=== PATIENT | male | born 1955 | race Caucasian/White ===

== ENCOUNTER 2016-06-07 10:25 | Outpatient (CLI) | payer BC ==
[2015-09-17 21:16] VITALS: BP 132/74
--- NOTE | 2016-06-07 15:32 | Diagnostic Imaging Report ---
HERMES BRUNSON [facility] [address] [facility].[address] [address] Report Submission Date: Jun 07, 2016 12:10:51 PM CDT Patient Study Name: CIRILO RAHMAN SARAVANAN Date: Jun 07, 2016 10:57:47 AM CDT Modality Type: CR Gender: M Description: SPINE : 57 Institution: [facility] Physician: HERMES BRUNSON Thoracic spine - four views Clinical history: Left-sided back pain. Findings: Examination of the thoracic spine in AP, lateral, lateral thoracolumbar and lateral swimmer's views demonstrates degenerative changes with anterior and lateral osteophytes throughout the thoracic vertebrae. The pedicles are intact and the paravertebral soft tissues are within normal limits. There is no evident fracture. Spondylitic change are incidentally noted in the lumbar vertebrae and prior fusion of the cervical spine at C6-7. Impression: 1. Spondylosis. 2. No fracture. Electronically signed on Jun 07, 2016 12:10:51 PM CDT by: Paulo FENTON
== END 2016-06-07 10:26 ==
LOC: RAD 10:25
PROVIDERS: ATTEND Physician Assistant
DX: M54.9 Dorsalgia, unspecified (principal)
CPT/HCPCS: 72072

== ENCOUNTER 2016-09-11 22:16 | Emergency (ER) | payer BC ==
[2016-09-11] MEDS ORDERED: fentaNYL CITRATE/PF 100 MCG/ 2ML AMP IVP ONE (23:13)
[2016-09-11] MEDS ORDERED: LORazepam 2 MG/ML VIAL IVP ONE (23:13)
--- NOTE | 2016-09-11 23:20 | ED Physician Documentation ---
Fall - HISTORIAN Historian: patient - HPI Stated Complaint: hand pain after fall Chief Complaint: Upper Extremity Injury Additional Information: FELL IN SHOWER APPROX 2200 HRS W/PAIN DEFORMITY LT DISTAL PHALYNX 4TH FINGER. XRAY SHOWS DORSAL DISPLACEMENT DISTAL PHALYNX Where: home Context: slipped (ION SHOWER) r: moderate Associated Symptoms:: no loss of consciousness Location of Pain/Injury: denies: head Injury to Right Extremity: denies: none Further Comments: yes (ATE BURGER AND FRIES APPROX 1800HRS) - ROS CONST: no problems NEURO: denies: dizziness MS/SKIN/LYMPH: denies: weakness, numbness, neck pain, back pain EYES/ENT: denies: problems with vision CVS/RESP: denies: chest pain, shortness of breath - PAST HX Past History: other (HTN) Allergies/Adverse Reactions: Allergies Allergy/AdvReac Type Severity Reaction Status Date / Time No Known Drug Allergies Allergy Verified 09/11/16 22:29 - SOCIAL HX Smoking History: non-smoker Alcohol Use: other (APPROX 2 BEER PER DAY) Drug Use: none - FAMILY HX Family History: no significant history - VITAL SIGNS Vital Signs: Vital Signs Temp Pulse Resp BP Pulse Ox 76 16 162/67 98 09/11/16 22:31 09/11/16 22:31 09/11/16 22:31 09/11/16 22:31 - REVIEWED ASSESSMENTS Nursing Assessment Reviewed: Yes Vitals Reviewed: Yes Procedures Joint Reduction Site: knee (R) (PHALYNX LT 4TH FINGER), other Conscious Sedation: Yes Pre-Procedure NV Exam: Yes Post Joint Reduction Film: no fracture seen ED Results Lab/Radiology - Radiology Radiology Impressions: POOST REDUCTIONH SATIS SPLINT APPLIED - Orders Orders: ED Orders Category Date Time Status Place IV Lock 1T Care 09/11/16 23:12 Ordered HAND XRAY [HAND 3 VIEWS OR MORE] [RAD] Stat Exams 09/11/16 Ordered LORazepam [Ativan] Med 09/11/16 23:13 Once 1 mg IVP NOW ONE fentaNYL CITRATE/PF [Duragesic] Med 09/11/16 23:13 Once 50 mcg IVP NOW ONE Fall Physical Exam - Physical Exam General Appearance: mild distress Head: non-tender Neck: non-tender Eye: EOMI Resp/CVS: chest non-tender, no ecchymosis, breath sounds nml, no resp. distress , heart sounds nml Abdomen: soft, non-tender Neuro: oriented x3, CN's nml as tested, sensation nml, motor nml, mood/affect nml Skin: color nml, no rash. No: cyanosis, diaphoresis Back: normal inspection Joint: No: joints nml - Kandace Coma Score Eyes Open: Spontaneous Speech: Oriented Motor: Obeys Commands Discharge Clincal Impression: FALL W/DISLOCATION LT 4TH DISTAL PHALYNX Referrals: Jennifer Dixon MD [Primary Care Provider] - 2 Days Comments: SOST REDUCTION FILMS SHOW ADEQUATE REDUCTION SPLINT APPLIED-F/U W/PCP IN 5/6 DAYS Condition: Good Disposition: 01 HOME, SELF-CARE Decision to Admit: NO Decision Time: 00:40
--- NOTE | 2016-09-12 00:55 | Diagnostic Imaging Report ---
NGUYEN QUEVEDO [facility] [address] [facility] [address] [address] Report Submission Date: Sep 11, 2016 10:47:33 PM CDT Patient Study Name: CIRILO RAHMAN SARAVANAN Date: Sep 11, 2016 10:30:54 PM CDT Modality Type: CR Gender: M Description: UPPER EXTREMITY : 57 [facility] Physician: NGUYEN QUEVEDO Left hand, 3 views. History: FALL Findings: There is posterior dislocation of the 4th distal phalanx at the distal interphalangeal joint space. There is no evidence of acute fracture. There is no soft tissue abnormality. Impression: 1. 4th distal phalanx posterior dislocation. No evidence of fracture. Electronically signed on Sep 11, 2016 10:47:33 PM CDT by: Aguilar FENTON
--- NOTE | 2016-09-12 00:56 | Diagnostic Imaging Report ---
NGUYEN QUEVEDO [facility] [address] [facility] [address] [address] Report Submission Date: Sep 12, 2016 12:43:41 AM CDT Patient Study Name: CIRILO RAHMAN SARAVANAN Date: Sep 12, 2016 12:19:13 AM CDT Modality Type: CR Gender: M Description: UPPER EXTREMITY : 57 Institution: [facility] Physician: NGUYEN QUEVEDO Left 4th digit Clinical history: Pain Technique AP lateral oblique Findings: The distal interphalangeal joint dislocation has been reduced. No fractures is seen. Top Impression: Reduced 4th digit dip joint dislocation Electronically signed on Sep 12, 2016 12:43:41 AM CDT by: Sadiq FENTON
[2016-09-12 01:35] VITALS: BP 170/78
== END 2016-09-12 01:10 | disposition home or self-care (01) ==
LOC: ED 22:16
DX: S63.255A Unspecified dislocation of left ring finger, initial encounter (principal); W19.XXXA Unspecified fall, initial encounter; Y93.9 Activity, unspecified; Y99.9 Unspecified external cause status
CPT/HCPCS: 73130; 73140; J2060; J3010; 26700; 96374; 96375; 99283; S1016

== ENCOUNTER 2017-04-29 08:56 | Outpatient (CLI) | payer BC ==
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
== END 2017-04-29 08:59 ==
LOC: OUT 08:56
PROVIDERS: ATTEND Anesthesiology Pain Medicine
DX: M54.14 Radiculopathy, thoracic region (principal); M79.89 Other specified soft tissue disorders; Z04.2 Encounter for examination and observation following work accident
CPT/HCPCS: 99213; 99214

== ENCOUNTER 2017-05-27 09:32 | Outpatient (CLI) | payer BC ==
--- NOTE | 2017-05-29 08:50 | PAIN CLINIC PROGRESS NOTES ---
REASON FOR VISIT: Mr. Leach follows up today with [id number] thoracic pain symptoms and pain radiating around the thoracic spine. He did obtain an MRI study. We do have images as well of the lumbar spine. He had a grade 1 retro-anterolisthesis of L5-S1 resulting in bilateral neuroforaminal stenosis and otherwise a disc protrusion at L1-L2, posterior osteophytes at L2-L3, and spondylosis in the thoracic and lumbar spine. I reviewed his thoracic images taking in consideration the area of his chief complaint and he has notable posterior osteophytes at T7-T8, T8-T9, and T9-T10. There is a radiolucent segment, likely a hemangioma, at the body of T11. I have told him that this is very likely nerve root irritation from lifting and twisting at his job in conjunction with some narrowing in the thoracic spine. He is much improved following the prednisone dose pack; and at this point, he would like to avoid an injection. ASSESSMENT: 1. Thoracic radiculitis. 2. Thoracic disc protrusions documented on MRI. PLAN: I am going to give him a second prednisone taper and I will schedule him for a thoracic epidural steroid injection next month. If he is all better, I have told him that we would not need to see him. He seems pleased with this treatment plan, which is in accordance to his wishes, and we will plan on following him up next month. Thank you a lot for allowing me to take part in the care of this nice gentleman. I appreciate the opportunity to take part in the care of your patients. cc: Dr. Jennifer FENTON
== END 2017-05-27 09:33 ==
LOC: OUT 09:32
PROVIDERS: ATTEND Anesthesiology Pain Medicine
DX: M54.14 Radiculopathy, thoracic region (principal); M51.9 Unspecified thoracic, thoracolumbar and lumbosacral intervertebral disc disorder
CPT/HCPCS: 99213; 99214

== ENCOUNTER 2017-07-29 11:04 | Outpatient (CLI) | payer BC ==
[2017-07-29] MEDS ORDERED: TRIAMCINOLONE ACETONID 40MG/ML VIAL ONE (11:05)
[2017-07-29] MEDS ORDERED: WATER FOR INJECTION,STERILE 100 ML VIAL IJ ONE (11:05)
[2017-07-29] MEDS ORDERED: Lidocaine 1% 5ml(IM or SUTURE)(PAIN CLINIC) ONE (11:05)
--- NOTE | 2017-07-31 16:21 | THORACIC ESI FLUORO ---
SUBJECTIVE: Mr. Leach presents today with continued right-sided thoracic radicular pain. MRI with multilevel degenerative disk disease, multilevel osteophytes. X- ray consisted with ankylosing spondylitis. 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 Plan today for a palliative epidural injection, as he has had 2 rounds of prednisone and still has symptoms. OPERATIVE PROCEDURE: Right T9-T10 epidural steroid injection with fluoroscopic guidance. DESCRIPTION OF PROCEDURE: The risks and benefits were discussed with the patient including the risk of infection, bleeding, nerve injury, and headache, as well as the risks of steroid exposure causing hyperglycemia, hypertension, osteoporosis, or increased infectious risks. The patient understood these risks and agreed to proceed. Consent was obtained prior to the procedure. The patient was placed in the prone position on the fluoroscopy table with a pillow underneath the abdomen to afford anterior flexion of the thoracic spine. The low back was cleaned and a sterile drape was applied. An epidural needle was advanced with normal saline loss of resistance technique and direct fluoroscopic guidance with a right paramedian approach at the T9-T10 level. On obtaining loss of resistance to normal saline, it was verified that there was no aspiration of CSF or blood. Furthermore, the needle tip location was verified with lateral and AP fluoroscopic views. Omnipaque 240 myelogram dye were injected through the epidural needle. The distribution of the dye was noted to be within the desired distribution within the thoracic epidural space. The medication was injected into the epidural space. The stylet was replaced in the needle and the needle was removed from the back. The patient tolerated the procedure well. The back was cleaned and a bandage was applied over the injection site. The patient was monitored for 20 minutes following the procedure. during this time the vital signs remained stable and the patient experienced no adverse sequelae. The patient was discharged in good condition. ASSESSMENT: Thoracic radiculitis. PLAN: Right T9-T10 epidural steroid injection with fluoroscopic guidance. FOLLOWUP: Return to clinic if problems develop or worsen. cc: Dr. Jennifer FENTON
== END 2017-07-29 11:06 ==
LOC: OUT 11:04
PROVIDERS: ATTEND Anesthesiology Pain Medicine
DX: M54.14 Radiculopathy, thoracic region (principal)
CPT/HCPCS: 62321; 99214; J3301

== ENCOUNTER 2017-08-26 07:54 | Outpatient (CLI) | payer BC ==
--- NOTE | 2017-08-27 09:31 | PAIN CLINIC PROGRESS NOTES ---
REASON FOR VISIT: I had the opportunity of following up with Mr. Leach today following a T9-T10 epidural steroid injection for chronic radiculitis. Mr. Leach received a T9- T10 epidural injection for chronic radicular pain. His symptoms at this point are much improved. He says he does work at [employer]. He has to do some work overhead. He does some reaching. He has been trying to do activity pacing. We discussed the underlying problem and we discussed home exercise and physical therapy. ASSESSMENT: Thoracic degenerative disc disease and radiculitis, now improved. PLAN: At this point, he is much improved. We will have him begin a home exercise program and follow him up on a p.r.n. basis. He is pleased with the response. cc: Dr. Jennifer FENTON
== END 2017-08-26 07:59 ==
LOC: OUT 07:54
PROVIDERS: ATTEND Anesthesiology Pain Medicine
DX: M51.14 Intervertebral disc disorders with radiculopathy, thoracic region (principal)
CPT/HCPCS: 99213

== ENCOUNTER 2017-10-21 10:48 | Outpatient (CLI) | payer BC ==
[2017-10-21 11:02] LABS: BASOPHILS % 0.4 (0.0-1.5); EOSINOPHILS % 2.6 % (0.0-6.8); MEAN CORPUSCULAR HEMOGLOBIN 30.6 pg (28.0-34.0); MEAN CORPUSCULAR VOLUME 92.4 fl (80.0-100.0); MONOCYTES % 3.9 % (0.0-11.0); NEUTROPHILS # 7.1 # k/uL (1.4-7.7)
--- NOTE | 2017-10-21 11:48 | Diagnostic Imaging Report ---
KAITLIN JACOBS [facility] [address] [facility].[address] [address] Report Submission Date: Oct 21, 2017 11:37:41 AM CDT Patient Study Name: SERGIO RAHMAN Date: Oct 21, 2017 10:54:00 AM CDT Modality Type: DX Gender: M Description: UPPER EXTREMITY : 57 Institution: [facility] Physician: KAITLIN JACOBS Examination: Plain film left wrist History: Wrist discomfort Comparison exams: None available Findings: 3 views of the left wrist demonstrate normal cortical margins. No fracture. No dislocation. No soft tissue abnormality. Impression: No acute osseous abnormality Electronically signed on Oct 21, 2017 11:37:41 AM CDT by: Freddie FENTON
== END 2017-10-21 10:50 ==
LOC: LAB 10:48
PROVIDERS: ATTEND Family Medicine
DX: M25.532 Pain in left wrist (principal)
CPT/HCPCS: 36415; 73110; 84550; 85025

== ENCOUNTER 2018-03-25 15:28 | Outpatient (CLI) | payer BC ==
[2018-03-25 16:06] LABS: eGFR (Non-African) > 60
[2018-03-25 16:09] LABS: MEAN CORPUSCULAR HEMOGLOBIN 30.6 pg (28.0-34.0)
[2018-03-25 16:11] LABS: BASOPHILS % 1 % (0-2); EOSINOPHILS % 1 % (0-7); MONOCYTES % 3 % (0-11); SEGMENTED NEUTROPHILS % 57 % (39-79)
--- NOTE | 2018-03-25 17:21 | Diagnostic Imaging Report ---
ZOE JUSTICE [facility] [address] [address] [address] Report Submission Date: Mar 25, 2018 4:48:16 PM SLIDER ASSEMBLER Patient Study Name: SERGIO RAHMAN Date: Mar 25, 2018 4:09:05 PM SLIDER ASSEMBLER Modality Type: DX Gender: M Description: CHEST 2VIEW : 57 Institution: [facility] Physician: ZOE JUSTICE Examination: PA and lateral chest. History: Evaluate lung smith. Comparison exam: None provided. Findings: PA and lateral views of the chest demonstrates a normal cardiac and mediastinal silhouette. No focal infiltrate. No blunting of the costophrenic margins. Osseous structures are appropriate for age. Impression: No acute pulmonary process. Electronically signed on Mar 25, 2018 4:48:16 PM SLIDER ASSEMBLER by: Freddie FENTON
== END 2018-03-25 15:30 ==
LOC: LAB 15:28
PROVIDERS: ATTEND Nurse Practitioner Family
DX: R06.02 Shortness of breath (principal); R53.83 Other fatigue; R42 Dizziness and giddiness
CPT/HCPCS: 36415; 71046; 80053; 85025

== ENCOUNTER 2018-03-30 13:13 | Outpatient (CLI) | payer BC ==
[2018-03-30 18:08] LABS: MEAN CORPUSCULAR HEMOGLOBIN 29.9 pg (28.0-34.0)
[2018-03-30 18:09] LABS: BASOPHILS % 0 % (0-2); EOSINOPHILS % 10 % (0-7); MONOCYTES % 5 % (0-11); SEGMENTED NEUTROPHILS % 56 % (39-79)
[2018-03-30 18:10] LABS: ANISOCYTOSIS 1+ (NEGATIVE); PLT EST. EST. AGREES W/PLT CT
== END 2018-03-30 13:15 ==
LOC: LAB 13:13
PROVIDERS: ATTEND Nurse Practitioner Family
DX: D72.829 Elevated white blood cell count, unspecified (principal)
CPT/HCPCS: 36415; 85025

== ENCOUNTER 2018-04-15 15:49 | Outpatient (CLI) | payer BC ==
[2018-04-15 16:09] LABS: BASOPHILS % 0.6 (0.0-1.5); EOSINOPHILS % 6.2 % (0.0-6.8); MEAN CORPUSCULAR HEMOGLOBIN 29.8 pg (28.0-34.0); MONOCYTES % 4.4 % (0.0-11.0); NEUTROPHILS # 4.2 # k/uL (1.4-7.7)
== END 2018-04-15 15:51 ==
LOC: LAB 15:49
PROVIDERS: ATTEND Nurse Practitioner Family
DX: R53.83 Other fatigue (principal)
CPT/HCPCS: 36415; 85025